=== PATIENT | male | born 1950 | race Caucasian/White ===

== ENCOUNTER → 2017-06-15 | Outpatient (CLI) | payer MEDICARE, OTHER ==
[~2017-06-15] MED LIST: ALLOPURINOL300 MG PO; AMLODIPINE BESYL5 MG PO; AVODART0.5 MG PO; CENTRUM SILVER1 EAC1 PO; COLACE100 MG PO; DOXAZOSIN MESYLA4 MG PO; HYDROCHLOROTH12.5 MG PO; METOPROLOL SUC200 MG PO; NEXIUM40 MG PO; NORCO 10-325 T1 EACH PO
--- NOTE | 2017-06-15 08:36 | Diagnostic Imaging Report ---
PROCEDURE:US RETROPERITONEAL ( KIDNEY ). COMPARISON:08/28/2015. INDICATIONS:Malignant Neoplasm Of Unspecified Kidney TECHNIQUE: Healy-scale and color sonographic images of the bilateral kidneys and bladder where obtained in transverse and longitudinal planes. FINDINGS: RIGHT KIDNEY: 8.1 cm in length, cortical thickness 1.7 cm Cysts: None Solid masses: None Stones: None Hydronephrosis: None Echogenicity: Normal renal cortical echogenicity LEFT KIDNEY: 10.9 cm in length, cortical thickness 1.5 cm Cysts: None Solid masses: None. Previously described exophytic region of the left kidney is less conspicuous on the current study. Stones: None Hydronephrosis: None Echogenicity: Normal renal cortical echogenicity. Bladder: Unremarkable. Right and left ureteral jets are identified. Prostate: 4.7 x 4.3 x 5.9 centimeters, estimated volume 62.3 cc CONCLUSION: Right renal size discrepancy in keeping with partial nephrectomy. Otherwise unremarkable sonographic appearance of the kidneys. Prostatomegaly. Dictated by: Rebel Yoo M.D. on 06/15/2017 at 8:36 Electronically approved by: Rebel Yoo M.D. on 06/15/2017 at 8:36
--- NOTE | 2017-06-15 08:51 | Diagnostic Imaging Report ---
PROCEDURE: X-RAY CHEST, TWO VIEWS COMPARISON: 06/16/2016. INDICATIONS: FOLLOW UP FOR KIDNEY SURGERY FINDINGS: LUNGS: No consolidations or edema. PLEURA: No effusions or pneumothorax. HEART \T\ MEDIASTINUM: The heart is within normal size-limits. BONES \T\ SOFT TISSUES: No acute findings. CONCLUSION: No acute thoracic abnormality. Dictated by: Rebel Yoo M.D. on 06/15/2017 at 8:51 Electronically approved by: Rebel Yoo M.D. on 06/15/2017 at 8:51
== END ==
LOC: US 07:39
PROVIDERS: ATTEND Urology
DX: C64.9 Malignant neoplasm of unspecified kidney, except renal pelvis (principal)
CPT/HCPCS: 71046; 76770

== ENCOUNTER → 2017-11-29 | Outpatient (CLI) | payer MEDICARE, OTHER ==
--- NOTE | 2017-11-29 14:26 | Diagnostic Imaging Report ---
PROCEDURE:US RETROPERITONEAL ( KIDNEY ). COMPARISON:Renal ultrasound 06/15/2017 INDICATIONS:MALIGNANT NEOPLASM OF KIDNEY TECHNIQUE: Healy-scale and color sonographic images of the bilateral kidneys and bladder where obtained in transverse and longitudinal planes. FINDINGS: RIGHT KIDNEY: 8.6 x 4.1 x 4.3 cm, cortex 1.6 cm. Post surgical changes related to partial nephrectomy. Cysts: None Solid masses: None Stones: None Hydronephrosis: None Echogenicity: Normal LEFT KIDNEY: 10.2 x 6.3 x 5 cm, cortex 1.7 cm Cysts: None Solid masses: None Stones: None Hydronephrosis: None Echogenicity: Normal Bladder: Nonspecific debris in the bladder. Both ureteral jets visualized Prostate: 5.2 x 3.9 x 4.5 cm (48 cc), enlarged. CONCLUSION: Partial right nephrectomy. No sonographic evidence of recurrent disease. Large prostate. Dictated by: Genaro Hickman M.D. on 11/29/2017 at 14:31 Electronically approved by: Genaro Hickman M.D. on 11/29/2017 at 14:31
--- NOTE | 2017-11-29 14:27 | Diagnostic Imaging Report ---
PROCEDURE: Frontal and lateral views of the chest. COMPARISON: Chest radiograph 06/15/2017 INDICATIONS: MALIGNANT NEOPLASM OF KIDNEY FINDINGS: Lines/tubes: None. Lungs: The lungs are well inflated and clear. There is no evidence of pneumonia or pulmonary edema. Pleura: There is no pleural effusion or pneumothorax. Heart and mediastinum: The heart and the mediastinum are normal. Bones: No acute bony abnormality. IMPRESSION: No acute cardiopulmonary disease. Dictated by: Genaro Hickman M.D. on 11/29/2017 at 14:33 Electronically approved by: Genaro Hickman M.D. on 11/29/2017 at 14:33
== END ==
LOC: US 12:57
PROVIDERS: ATTEND Urology
DX: C64.9 Malignant neoplasm of unspecified kidney, except renal pelvis (principal)
CPT/HCPCS: 71046; 76770

== ENCOUNTER → 2018-08-15 | Outpatient (CLI) | payer MEDICARE, OTHER ==
--- NOTE | 2018-08-15 12:38 | Diagnostic Imaging Report ---
EXAMINATION: CHEST 2 VIEWS INDICATION: Malignant neoplasm of the kidney. COMPARISON: No images are available for review, however reports are available for chest radiographs dating back to 12/14/2012. FINDINGS: TUBES and LINES: None. LUNGS: Lungs are moderately inflated. Mild patchy bibasilar opacities, likely atelectasis. There is no evidence of pneumonia or pulmonary edema. PLEURA: No pleural effusion or pneumothorax. HEART AND MEDIASTINUM: The cardiomediastinal silhouette is unremarkable. There is elevation of the right hemidiaphragm, which was noted on prior chest radiograph reports. BONES AND SOFT TISSUES: No acute osseous abnormality. UPPER ABDOMEN: No free air under the diaphragm. IMPRESSION: No acute radiographic abnormality. Signed by: Dr. Toyin Harrington MD on 08/15/2018 12:34 PM
--- NOTE | 2018-08-15 13:07 | Diagnostic Imaging Report ---
EXAM: Renal Ultrasound INDICATION: Malignant renal neoplasm. COMPARISON: Renal ultrasound 11/29/2017. TECHNIQUE: Transverse and longitudinal images of the kidneys and bladder were obtained. FINDINGS: Right Kidney: Length: Measures 7.4 x 4.6 x 5.4 cm. The renal cortex measures 1.4 cm. Appearance: Normal echogenicity. Status post partial right nephrectomy. Collecting system: No hydronephrosis Stones: None Cyst/Mass: None Left Kidney: Length: Measures 9.9 x 6.0 x 4.4 cm. The renal cortex measures 1.3 cm. Appearance: Normal echogenicity. Collecting system: No hydronephrosis Stones: None Cyst/Mass: None Bladder: Unremarkable in appearance. Bilateral ureteral jets are present. The prostate measures 4.3 x 3.9 x 4.9 cm, with an estimated volume of 42.6 cc. IMPRESSION: Status post partial right nephrectomy without sonographic evidence of renal mass. Prostatomegaly. Signed by: Dr. Toyin Harrington MD on 08/15/2018 1:04 PM
== END ==
LOC: US 11:39
PROVIDERS: ATTEND Urology
DX: C64.1 Malignant neoplasm of right kidney, except renal pelvis (principal)
CPT/HCPCS: 71046; 76770

== ENCOUNTER → 2019-04-03 | Outpatient (CLI) | payer MEDICARE, OTHER ==
--- NOTE | 2019-04-03 12:59 | Diagnostic Imaging Report ---
EXAM: CHEST 2 VIEWS DATE: 04/03/2019 11:57 AM INDICATION: Malignant neoplasm of the right kidney, hypertension COMPARISON: 08/15/2018 FINDINGS: The trachea is midline. There is stable mild elevation of the right hemidiaphragm. There is no evidence for large focal consolidation, pneumothorax, or significant pleural effusion. The cardiomediastinal silhouette is stable in appearance. No acute osseous abnormalities identified. IMPRESSION: No acute cardiopulmonary process or significant interval change identified from 08/15/2018 Signed by: Dr. Curt Zazueta MD on 04/03/2019 12:55 PM
--- NOTE | 2019-04-03 15:42 | Diagnostic Imaging Report ---
EXAM: US RENAL RETROPERITONEAL COMP DATE: 04/03/2019 11:57 AM INDICATION: Malignant neoplasm of the right kidney COMPARISON: 08/15/2018 FINDINGS: There are postsurgical changes from prior partial right nephrectomy. The right kidney measures 8.8 x 4.8 x 5.0 cm with cortical thickness of 1.0 cm. Cortical echogenicity is within normal limits. There is no evidence for solid renal mass, hydronephrosis, or shadowing calculi. The left kidney is normal in size measuring 11.0 x 5.7 x 5.3 cm with cortical thickness of 1.7 cm. Cortical echogenicity is within normal limits. There is no evidence for solid renal mass, hydronephrosis, or shadowing calculi. The urinary bladder appears unremarkable. Prevoid volume is 683 cc. The prostate is enlarged measuring 6.1 x 5.7 x 4.3 cm. IMPRESSION: Status post partial right nephrectomy. Otherwise, unremarkable renal ultrasound examination without evidence for renal mass. Prostatomegaly. Signed by: Dr. Curt Zazueta MD on 04/03/2019 3:39 PM
== END ==
LOC: US 11:42
PROVIDERS: ATTEND Urology
DX: C64.1 Malignant neoplasm of right kidney, except renal pelvis (principal)
CPT/HCPCS: 71046; 76770

== ENCOUNTER → 2023-08-23 | Outpatient (REF) | payer MEDICARE, OTHER | LOC: US 11:28 | PROVIDERS: ATTEND Urology | DX: C64.1 Malignant neoplasm of right kidney, except renal pelvis (principal) | CPT/HCPCS: 71046; 76770 ==

== ENCOUNTER → 2024-02-15 | Outpatient (REF) | payer MEDICARE, OTHER | LOC: US 11:44 | PROVIDERS: ATTEND Urology | DX: C64.1 Malignant neoplasm of right kidney, except renal pelvis (principal) | CPT/HCPCS: 71046; 76770; 76857 ==

== ENCOUNTER → 2025-01-23 | Outpatient (REF) | payer MEDICARE, OTHER | LOC: US 12:40 | PROVIDERS: ATTEND Urology | DX: C64.1 Malignant neoplasm of right kidney, except renal pelvis (principal) | CPT/HCPCS: 71046; 76770; 76857 ==